=== PATIENT | male | born 1960 | race African-American/Black ===

== ENCOUNTER 2018-11-28 08:07 | Emergency (ER) | payer OTHER ==
[~2018-11-28] VITALS: Ht 188 cm; Wt 63.5 kg
[~2018-11-28 08:07] MED LIST: ALBUPOW26 XX; ATEN-60 OR; HYDR-1421 OR; TRAZ50T GT; TRIA25CA PO
[2018-11-28] MEDS ORDERED: diphenhdrAMINE HCL 50 MG/1 ML VL ONE (08:48)
[2018-11-28] MEDS ORDERED: methylPREDNISolone SOD SUCC 125 MG/2 ML VL ONE (08:48)
[2018-11-28] MEDS ORDERED: methylPREDNISolone SOD SUCC 125 MG/2 ML VL IV ONE (09:00)
[2018-11-28] MEDS ORDERED: diphenhdrAMINE HCL 50 MG/1 ML VL IV ONE (09:00)
[2018-11-28] MEDS ORDERED: cloNIDine HCL 0.1 MG TAB PO ONE (09:30)
[2018-11-28] MEDS ORDERED: SODIUM CHLORIDE 0.9% 1,000 ML IV ONE ×2 (09:44)
[2018-11-28 10:05] VITALS: BP 180/123
[2018-11-28 10:45] LABS: Basophils # (auto) 0.1 uL; Basophils % (auto) 0.7 % (0.0-2.0); Eosinophils # (auto) 0.1 uL; Eosinophils % (auto) 1.1 % (0.0-7.0); Hemoglobin 15.6 g/dL (13.5-17.5); Lymphocytes # (auto) 1.4 uL; Lymphocytes % (auto) 18.7 % (10.0-50.0); Mean Corpuscular Hemoglobin 29.2 pg (28.0-32.0); Mean Corpuscular Hgb Conc. 32.4 g/dL (32.0-36.0); Mean Corpuscular Volume 89.9 fL (80.0-100.0); Monocytes # (auto) 0.3 uL; Monocytes % (auto) 4.1 % (0.0-12.0); Neutrophils # (auto) 5.5 uL; Neutrophils % (auto) 75.4 % (37.0-80.0); Nucleated Red Blood Cells % 0.1 %; Platelet Count (auto) 243 10^3/uL (140-450); Red Blood Cells 5.33 10^6/uL (4.5-5.90); Red Cell Distribution Width 15.4 % (11.8-14.3); White Blood Cell 7.2 10^3/uL (4.4-10.8)
[2018-11-28 10:50] LABS: Urine WBC None Seen /hpf (0 - 3)
[2018-11-28 10:56] LABS: INR 0.97 (0.9-1.15); Partial Thromboplastin Time 28.7 sec (23.64-32.05)
[2018-11-28 11:07] LABS: Anion Gap 9 (5-15); Blood Urea Nitrogen 15 mg/dL (7-18); Carbon Dioxide 27 mmol/L (21-32); Chloride 103 mmol/L (98-107); Glucose 65 mg/dL (74-106); Potassium 4.3 mmol/L (3.5-5.1); Sodium 139 mmol/L (136-145)
[2018-11-28 11:08] LABS: Alanine Aminotransferase 21 U/L (16-61); Albumin 3.5 g/dL (3.4-5.0); Alkaline Phosphatase 98 U/L (45-117); Aspartate Aminotransferase 24 U/L (15-37); BUN/Creatinine Ratio 12.5; Bilirubin, Total 0.7 mg/dL (0.2-1.0); Calcium 8.6 mg/dL (8.5-10.1); GFR African American 80 mL/min; GFR Non-African American 66 mL/min; Total Protein 7.7 g/dL (6.4-8.2)
[2018-11-28 11:14] LABS: Urine Bacteria NONE SEEN /hpf (None Seen); Urine Blood Negative /uL (Negative); Urine Specific Gravity 1.005 (1.001-1.035); Urine Sperm PRESENT /hpf (None Seen)
[2018-11-28] MEDS ORDERED: amLODIPine BESYLATE 5 MG TAB PO ONE (12:00)
== END 2018-11-28 13:19 | disposition home or self-care (01) ==
LOC: EDBD 08:07 → ER 08:14
DX: T78.40XA Allergy, unspecified, initial encounter (principal); I10 Essential (primary) hypertension; J44.9 Chronic obstructive pulmonary disease, unspecified; K21.9 Gastro-esophageal reflux disease without esophagitis; F17.210 Nicotine dependence, cigarettes, uncomplicated; F12.10 Cannabis abuse, uncomplicated; Z88.0 Allergy status to penicillin; Z79.899 Other long term (current) drug therapy; X58.XXXA Exposure to other specified factors, initial encounter
CPT/HCPCS: 36415; 71045; 80053; 81001; 83880; 84484; 85025; 85610; 85730; 96374; 96375; 99284; J1200; J2930